=== PATIENT | male | born 1985 | race Caucasian/White ===

== ENCOUNTER 2017-07-07 19:40 | Emergency (ER) | payer BC, OTHER ==
[2017-07-07 19:53] VITALS: BP 119/70
[2017-07-07] MEDS ORDERED: Tetan/Diph/Pertus SYR(Tdap)* 0.5 ML SYR(BOOSTRIX) use SYR IM ONE (20:37)
[2017-07-07] MEDS ORDERED: Lidocaine 2% PF * 5 ML VIAL INJ ONE (20:44)
--- NOTE | 2017-07-07 20:44 | UC ---
Laceration HPI - HPI Summary HPI Summary: 31 y/o male presents to the urgent care c/o cutting his s left middle finger with a knife while doing some cable work about 2 hrs ago. Pt irrigated wound and bleeding stopped. Pt can't recall last tetanus shot. Pain is 3/10 and he can move his finger w/o any difficulty or pain. Pt denies numbness or tingling over the finger, SOB, chest pain , N/V/D - History Of Current Complaint Chief Complaint: UCLaceration Stated Complaint: HAND LACERATION Time Seen by Provider: 07/07/17 20:36 Hx Obtained From: Patient Laceration Location: Finger - Left middle finger Mechanism Of Injury: Sharp Trauma Onset/Duration: Sudden Onset - 2 hrs ago, Lasting Hours, Lasting Days Severity: Moderate Pain Intensity: 3 Pain Scale Used: 0-10 Numeric Aggravating Factors: Movement Related History: Dominant Hand Right - Allergies/Home Medications Allergies/Adverse Reactions: Allergies Allergy/AdvReac Type Severity Reaction Status Date / Time No Known Allergies Allergy Verified 07/07/17 19:53 PMH/Surg Hx/FS Hx/Imm Hx Previously Healthy: Yes - Pt denies PMHX - Surgical History Surgical History: Yes Surgery Procedure, Year, and Place: T&A age 13 - Family History Known Family History: Positive: None - No heart disease or DM in the family - Social History Occupation: Employed Full-time Lives: With Family Alcohol Use: None Substance Use Type: None Smoking Status (MU): Never Smoked Tobacco Review of Systems Constitutional: Fever Skin: Other - Lef middle finger laceration Eyes: Negative ENT: Negative Respiratory: Negative Cardiovascular: Negative Gastrointestinal: Negative Genitourinary: Negative Motor: Negative Neurovascular: Negative Musculoskeletal: Negative Neurological: Negative Psychological: Negative Is Patient Immunocompromised?: No All Other Systems Reviewed And Are Negative: Yes Physical Exam Triage Information Reviewed: Yes Appearance: Well-Appearing, No Pain Distress, Well-Nourished Vital Signs: Initial Vital Signs Temp 99.0 F 07/07/17 19:51 Pulse 81 07/07/17 19:51 Resp 14 07/07/17 19:51 BP 119/70 07/07/17 19:51 Pulse Ox 96 07/07/17 19:51 Vital Signs Reviewed: Yes Eye Exam: Normal Eyes: Positive: Conjunctiva Clear - PERRLA, EOMI ENT Exam: Normal ENT: Positive: Normal ENT inspection, Hearing grossly normal, Pharynx normal, TMs normal Neck exam: Normal Neck: Positive: Supple, Nontender, No Lymphadenopathy Respiratory Exam: Normal Respiratory: Positive: Chest non-tender, Lungs clear, Normal breath sounds Cardiovascular Exam: Normal Cardiovascular: Positive: RRR, No Murmur, Pulses Normal, Brisk Capillary Refill Abdominal Exam: Normal Abdomen Description: Positive: Nontender, No Organomegaly, Soft. Negative: CVA Tenderness (R), CVA Tenderness (L) Bowel Sounds: Positive: Present Musculoskeletal Exam: Normal Musculoskeletal: Positive: Strength Intact, ROM Intact, No Edema Neurological Exam: Normal Psychological Exam: Normal Skin: Positive: significant lesion(s) - Left #3 phalanx superficial laceration near the DIPJ about 1.8cm in size, non bleeding, no foreign body observe. FROM of phalanx.positive sensation, brisk capillary refill, positive pulses and reflexes WNL Laceration Repair - Laceration Repair 1 Description: Linear Laceration Size After Repair: Length (cm) - 1.8cm Modified For Repair: No Type Injection: Local Anesthesia Used: 2.0% Lido - 4ml Cleansing Completed Via Routine Prep: Yes Irrigation With Pressure Irrigation Device: Yes Closure Material: Sutures - 6 Closure Method: Single Layer Suture Of: Skin Suture Type: Nylon - 5.0 Laceration Course/Dx - Course/Dx Course Of Treatment: 31 y/o male presents to the urgent care c/o cutting his s left middle finger with a knife while doing some cable work about 2 hrs ago. Pt irrigated wound and bleeding stopped. Pt can't recall last tetanus shot. Pain is 3/10 and he can move his finger w/o any difficulty or pain. Pt denies numbness or tingling over the finger, SOB, chest pain , N/V/D. HX obtaeined. PE performed,Tetanus vaccine orderedn. Applied by nurse. Pt tolerated well IM vaccine. LACERATION PROCEDURE NOTE: . Copious irrigation was done with saline by the nurse and the wound explored. There was no FB or deep structure injury noted. FROM of left #3 phlanx and left hand. procedure was explained and consent obtained, Timeout performed. The wound was anesthetized with 4 mL of 2 % lido with good anesthesia. Sterile drape and prep was done. There were 6 sutures with 5.0 nylon type of suture. The length of the wound after closure was 1.8m. No debridement done. Wound was covered bacitracin with sterile nonadherent dressing. The Pt tolerated the procedure well without adverse effects. Neurovascular intact and FROM. Pt advised to f/u suture removal in 10 days and if any signs of infection develop to immediately return to the urgent care of PCP for further management and treatment. Pt understood and agreed and left the clinic ambulating A&Ox3. - Differential Dx - Laceration/Wound Differental Diagnoses: Abrasion, Avulsion, Fracture, Laceration, Puncture Wound , Tendon Laceration Provider Diagnoses: 1- Left #3 phalanx laceration Discharge - Discharge Plan Condition: Stable Disposition: HOME Prescriptions: Bacitracin OINTMENT* 1 applic TOPICAL TID #1 tube Ibuprofen TAB* [Motrin TAB* 800 MG] 800 mg PO Q6H #20 tab Patient Education Materials: Care For Your Stitches (ED), Laceration (ED) Referrals: [facility] [Outside] - 1 Week No Primary Care Phys,NOPCP [Primary Care Provider] - Additional Instructions: 1- Keep wound clean and dry and avoid excessive movement w/ your finger. 2- F/u suture removal in 10 days w/ your PCP or here at the urgent care. 3-Take Ibuprofen PO q6-8hrs prn for pain or swelling. 4- If you develop fever or redness around your finger please go to the ER immediately or return to the Urgent care.
== END 2017-07-07 22:11 | disposition home or self-care (01) ==
LOC: UCEAST 19:40
DX: S61.213A Laceration without foreign body of left middle finger without damage to nail, initial encounter (principal); W26.0XXA Contact with knife, initial encounter; Y93.89 Activity, other specified; Y92.9 Unspecified place or not applicable; Y99.9 Unspecified external cause status
CPT/HCPCS: 12001; 90471; 90715; 99212; G0463

== ENCOUNTER 2019-04-28 09:26 | Emergency (ER) | payer SELFPAY ==
[2019-04-28] MEDS ORDERED: NS 0.9% 1000 ML** 1,000 ML IV ONE (10:03)
[2019-04-28] MEDS ORDERED: Ondansetron INJ* 2 MG/ML VIAL IV ONE (10:03)
[2019-04-28] MEDS ORDERED: Ketorolac INJ* 30 MG/ML 1 ML VIAL IV PUSH ONE (10:03)
[2019-04-28 10:27] LABS: ABS Lymphocytes 0.3 10^3/ul (1.0-4.8); ABS Monocytes 0.3 10^3/ul (0-0.8); ABS Neutrophils 1.8 10^3/ul (1.5-7.7); Eosinophil % 0.2 %; Hematocrit 42 % (42-52); Hemoglobin 14.4 g/dL (14.0-18.0); Lymphocyte % 12.3 %; Mean Corpuscular HGB Conc 35 g/dL (31-36); Mean Corpuscular Hemoglobin 30 pg (27-31); Mean Corpuscular Volume 86 fL (80-94); Mean Platelet Volume 7.2 fL (7.4-10.4); Platelet Count 126 10^3/uL (150-450); Red Blood Count 4.84 10^6 /uL (4.18-5.48); Red Cell Distribution Width 13 % (10-15); White Blood Count 2.4 10^3/uL (3.5-10.8)
[2019-04-28 10:44] LABS: Albumin 4.5 g/dL (3.2-5.2); Albumin/Globulin Ratio 1.7 (1-3); BUN/Creatinine Ratio 15.8 (8-20); C Reactive Protein 76.75 mg/L (<8.01); Calcium 9.4 mg/dL (8.6-10.3); EGFR African American 142.1 (>60); EGFR Non-African American 117.4 (>60); Globulin 2.7 g/dL (2-4); Potassium 3.7 mmol/L (3.5-5.0); Total Bilirubin 1.4 mg/dL (0.2-1.0); Total Protein 7.2 g/dL (6.4-8.9)
[2019-04-28] MEDS ORDERED: DOXYcycline CAP(*) 100 MG PO ONE (11:12)
[2019-04-28 11:32] VITALS: BP 133/76
--- NOTE | 2019-04-28 11:48 | ED ---
Complex/Multi-Sys Presentation - HPI Summary HPI Summary: Patient is a 33-year-old male who presents emergency department for fever, headache, neck pain and diffuse body aches times several days. Patient denies cough, sore throat, sinus congestion, abdominal pain, vomiting, diarrhea, dysuria. 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 Patient states he noticed a area of redness to his buttocks a few days ago and significant other states redness is growing larger. Patient states it did appear to be central clearing to the area. He states he has had boils in the past but states this is not painful there has been no drainage. Patient has a history of drug addiction and has been clean for a few years. Patient denies recent IV drug use. Denies recent travels or new exposures. Symptoms are moderate in severity. No current modifying factors. - History Of Current Complaint Chief Complaint: EDNeckComplaint Time Seen by Provider: 04/28/19 09:42 Hx Obtained From: Patient - Allergies/Home Medications Allergies/Adverse Reactions: Allergies Allergy/AdvReac Type Severity Reaction Status Date / Time No Known Allergies Allergy Verified 04/28/19 09:41 Home Medications: Home Medications Buprenorphine TAB* 24 mg PO DAILY 04/28/19 [History Confirmed 04/28/19] PMH/Surg Hx/FS Hx/Imm Hx Previously Healthy: Yes Endocrine/Hematology History: Denies: Hx Diabetes Cardiovascular History: Denies: Hx Hypertension History: Denies: Hx Dialysis, Hx Renal Disease - Surgical History Surgery Procedure, Year, and Place: T&A age 13 Infectious Disease History: No Infectious Disease History: Denies: Traveled Outside the [place] in Last 30 Days - Family History Known Family History: Positive: None - No heart disease or DM in the family, Non -Contributory - Social History Occupation: Employed Full-time Lives: With Family Alcohol Use: None Substance Use Type: Reports: None Smoking Status (MU): Never Smoked Tobacco Review of Systems Positive: Fever, Chills Eyes: Negative ENT: Negative Negative: Dental Pain, Sore Throat, Ear Ache, Nasal Discharge Cardiovascular: Negative Negative: Palpitations, Chest Pain Respiratory: Negative Negative: Shortness Of Breath, Cough Positive: Nausea. Negative: Abdominal Pain, Vomiting, Diarrhea Genitourinary: Negative Negative: dysuria Positive: Myalgia Positive: Rash Positive: Headache. Negative: Weakness, Paresthesia, Numbness, Syncope All Other Systems Reviewed And Are Negative: Yes Physical Exam Triage Information Reviewed: Yes Vital Signs On Initial Exam: Initial Vitals Temp Pulse Resp BP Pulse Ox 98.4 F 71 14 128/78 99 04/28/19 09:27 04/28/19 09:27 04/28/19 09:27 04/28/19 09:27 04/28/19 09:27 Vital Signs Reviewed: Yes Appearance: Positive: Well-Appearing - Pt. sitting up in bed in NAD. SO present. Skin: Positive: Warm, Dry, Other - Annular erythematous rash noted to top of right gluteal cleft. Mild central clearing. No tenderness, induration or fluctuance. Head/Face: Positive: Normal Head/Face Inspection Eyes: Positive: Normal, EOMI, ELIZABETH, Conjunctiva Clear ENT: Positive: Pharynx normal, TMs normal Neck: Positive: Supple, Nontender, No Lymphadenopathy. Negative: Nuchal Rigidity Respiratory/Lung Sounds: Positive: Clear to Auscultation, Breath Sounds Present. Negative: Rales, Rhonchi, Wheezes Cardiovascular: Positive: Normal, RRR Musculoskeletal: Positive: Normal, Strength/ROM Intact Neurological: Positive: Normal, CN Intact II-III Psychiatric: Positive: Affect/Mood Appropriate Diagnostics - Vital Signs Vital Signs Temp Pulse Resp BP Pulse Ox 04/28/19 11:31 98.4 F 73 16 133/76 99 04/28/19 09:27 98.4 F 71 14 128/78 99 - Laboratory Lab Results: Lab Results 04/28/19 04/28/19 Range/Units 10:18 10:18 WBC 2.4 L (3.5-10.8) 10^3/uL RBC 4.84 (4.18-5.48) 10^6 /uL Hgb 14.4 (14.0-18.0) g/dL Hct 42 (42-52) % MCV 86 (80-94) fL MCH 30 (27-31) pg MCHC 35 (31-36) g/dL RDW 13 (10-15) % Plt Count 126 L (150-450) 10^3/uL MPV 7.2 L (7.4-10.4) fL Neut % (Auto) 73.9 % Lymph % (Auto) 12.3 % Boyle % (Auto) 13.4 % Eos % (Auto) 0.2 % Baso % (Auto) 0.2 % Absolute Neuts (auto) 1.8 (1.5-7.7) 10^3/ul Absolute Lymphs (auto) 0.3 L (1.0-4.8) 10^3/ul Absolute Monos (auto) 0.3 (0-0.8) 10^3/ul Absolute Eos (auto) 0.0 (0-0.6) 10^3/ul Absolute Basos (auto) 0.0 (0-0.2) 10^3/ul Absolute Nucleated RBC 0.0 10^3/ul Nucleated RBC % 0.0 Sodium 137 (135-145) mmol/L Potassium 3.7 (3.5-5.0) mmol/L Chloride 101 (101-111) mmol/L Carbon Dioxide 31 (22-32) mmol/L Anion Gap 5 (2-11) mmol/L BUN 12 (6-24) mg/dL Creatinine 0.76 (0.67-1.17) mg/dL Est GFR ( Amer) 142.1 (>60) Est GFR (Non-Af Amer) 117.4 (>60) BUN/Creatinine Ratio 15.8 (8-20) Glucose 127 H (70-100) mg/dL Calcium 9.4 (8.6-10.3) mg/dL Total Bilirubin 1.40 H (0.2-1.0) mg/dL AST 88 H (13-39) U/L ALT 74 H (7-52) U/L Alkaline Phosphatase 85 (34-104) U/L C-Reactive Protein 76.75 H (<8.01) mg/L Total Protein 7.2 (6.4-8.9) g/dL Albumin 4.5 (3.2-5.2) g/dL Globulin 2.7 (2-4) g/dL Albumin/Globulin Ratio 1.7 (1-3) Result Diagrams: 04/28/19 10:18 04/28/19 10:18 Lab Statement: Any lab studies that have been ordered have been reviewed, and results considered in the medical decision making process. Complex Multi-Symp Course/Dx Course Of Treatment: Patient presenting with headache, fever, malaise and rash. No nuchal rigidity or evidence of meningitis on exam. Given symptoms and rash suspect tick borne illness. Patient was given IV fluids and Toradol. Labs chest x-ray ordered. Chest x-ray is negative for acute findings, reading per radiology. Labs shows a leukopenia, low platelets as well as mildly elevated liver enzymes. Suspect sxs maybe from anaplasmosis given labs. Anaplasmosis added on tests. On reexamination patient is feeling a bit better. We'll start on doxycycline. Results were discussed. Advised close follow-up with PCP next week. Will call if labs are positive. Can rotate Tylenol and Motrin for fever and pain control. We'll return to the ER if symptoms change or worsen. Patient and significant other understand and agree with plan. - Diagnoses Provider Diagnoses: Fever, At high risk for tick borne illness Discharge - Sign-Out/Discharge Documenting (check all that apply): Patient Departure Patient Received Moderate/Deep Sedation with Procedure: No - Discharge Plan Condition: Improved Disposition: HOME Prescriptions: DOXYcycline CAP(*) [DOXYcycline 100MG CAP(*)] 100 mg PO BID #42 cap Patient Education Materials: Lyme Disease (ED), Fever in Adults (ED) Referrals: Gerri Turner MD [Primary Care Provider] - Additional Instructions: Call PCP tomorrow for close follow up appointment Take doxycycline as directed Symptoms and labs are concerning for anaplasmosis (tick born disease) Will call if send out test are positive Can rotate between Tylenol and Motrin for pain and fever as directed Increase fluids and rest Return to ER if symptoms change or worsen - Billing Disposition and Condition Condition: IMPROVED Disposition: Home
[2019-05-02 10:18] LABS: Anaplasma phagocytophilum Negative (Negative); B garinii/B afzelii PCR Negative (Negative); B mayonii PCR Negative (Negative); Ehrlichia chaffeensis Negative (Negative); Ehrlichia ewingii/canis Negative (Negative); Ehrlichia muris eauclairensis Negative (Negative)
== END 2019-04-28 11:31 | disposition home or self-care (01) ==
LOC: ED 09:26
DX: R50.9 Fever, unspecified (principal); R51 Headache; M54.2 Cervicalgia; M79.10 Myalgia, unspecified site
CPT/HCPCS: 36415; 71046; 80053; 85025; 86140; 87040; 87476; 87798; 96361; 96374; 96375; 99282; A9270-GY; J1885; J2405

== ENCOUNTER 2019-06-06 12:11 | Emergency (ER) | payer MEDICAID ==
[2019-06-06 12:22] VITALS: BP 97/59
--- NOTE | 2019-06-06 12:28 | UC ---
Throat Pain/Nasal Abdirahman HPI - HPI Summary HPI Summary: 33 yo male presents with LEFT TMJ pain. He tells me that about a week ago he was eating and bit down really hard and felt a pop in his left jaw near his ear. Since that time, anytime he bites down hard he has pain in this area. Has a hx of a jaw fracture here many years ago, but states it healed well. He has been taking ibuprofen with mild relief, but pain continues. Denies injury, fever , sinus symptoms, sore throat. - History of Current Complaint Chief Complaint: UCDentalProblem Stated Complaint: JAW/DENTAL PAIN Time Seen by Provider: 06/06/19 12:28 Hx Obtained From: Patient Onset/Duration: Sudden Onset Severity: Moderate Pain Intensity: 6 Pain Scale Used: 0-10 Numeric - Allergies/Home Medications Allergies/Adverse Reactions: Allergies Allergy/AdvReac Type Severity Reaction Status Date / Time No Known Allergies Allergy Verified 06/06/19 12:23 PMH/Surg Hx/FS Hx/Imm Hx - Additional Past Medical History Additional PMH: None - Surgical History Surgical History: Yes Surgery Procedure, Year, and Place: T&A age 13 - Family History Known Family History: Positive: None - No heart disease or DM in the family, Non -Contributory - Social History Lives: With Family Alcohol Use: None Substance Use Type: None Smoking Status (MU): Never Smoked Tobacco Review of Systems All Other Systems Reviewed And Are Negative: Yes Constitutional: Positive: Negative Skin: Positive: Negative Eyes: Positive: Negative ENT: Positive: Negative Respiratory: Positive: Negative Cardiovascular: Positive: Negative Neurovascular: Positive: Negative Musculoskeletal: Positive: Other: - LEFT TMJ pain Neurological: Positive: Negative Psychological: Positive: Negative Physical Exam - Summary Physical Exam Summary: GENERAL: NAD. WDWN. No pain distress. SKIN: No rashes, sores, lesions, or open wounds. HEENT: Head: AT/NC. LEFT TMJ mild TTP during closed position. Eyes: EOM intact. Conjunctiva clear without inflammation or discharge. Ears: Hearing grossly normal. TMs intact, no bulging, erythema, or edema. Nose: Nasal mucosa pink and moist. NTTP maxillary and frontal sinus. Throat: Posterior oropharynx without exudates, erythema. Uvula midline. NECK: Supple. Nontender. No lymphadenopathy. CHEST: CTAB. No r/r/w. No accessory muscle use. Breathing comfortably and in no distress. CV: RRR. Without m/r/g. Pulses intact. Cap refill <2seconds NEURO: Alert. PSYCH: Age appropriate behavior. Triage Information Reviewed: Yes Vital Signs: Initial Vital Signs Temp 98.4 F 06/06/19 12:19 Pulse 59 06/06/19 12:19 Resp 18 06/06/19 12:19 BP 97/59 06/06/19 12:19 Pulse Ox 98 06/06/19 12:19 Vital Signs Reviewed: Yes Throat Pain/Nasal Course/Dx - Course Course Of Treatment: XR TMJ: IMPRESSION: UNREMARKABLE TEMPOROMANDIBULAR JOINTS BILATERALLY. IF THERE IS CLINICAL CONCERN FOR INTERNAL DERANGEMENT, MRI MAY BE MORE SENSITIVE. Suspect left TMJ pain. Will have him try naproxen. Advised to avoid large or hard to eat foods such as steak or apples. Recommend f/u with ENT if pain persists - Differential Dx/Diagnosis Provider Diagnosis: TMJ tenderness, left Discharge - Sign-Out/Discharge Documenting (check all that apply): Patient Departure All imaging exams completed and their final reports reviewed: Yes - Discharge Plan Condition: Stable Disposition: HOME Prescriptions: Naproxen [Naproxen 500 mg tab] 500 mg PO BID PRN #30 tablet PRN Reason: Pain - Moderate Patient Education Materials: Temporomandibular Disorder (ED) Referrals: Gerri Turner MD [Primary Care Provider] - Sanjiv Mathur MD [Medical Doctor] - 1 Week Additional Instructions: If you develop a fever, shortness of breath, chest pain, new or worsening symptoms - please call your PCP or go to the ED immediately. I recommend that you call the Ear, Nose, and Throat doctor at the number below to schedule an appointment within 1 week for a recheck of your TMJ pain - Billing Disposition and Condition Condition: STABLE Disposition: Home
== END 2019-06-06 13:12 | disposition home or self-care (01) ==
LOC: UCEAST 12:11
DX: M26.622 Arthralgia of left temporomandibular joint (principal)
CPT/HCPCS: 70330; 99212; G0463

== ENCOUNTER 2019-12-25 11:17 | Emergency (ER) | payer MEDICAID, OTHER ==
[2019-12-25 11:36] VITALS: BP 119/82
[2019-12-25 12:43] LABS: Influenza A Molecular Negative (Negative); Influenza B Molecular Negative (Negative)
--- NOTE | 2019-12-25 12:56 | UC ---
FLU HPI - HPI Summary HPI Summary: 34yo male presenting with sore throat and nasal congestion x4 days and chest congestion, cough, and "chest pain" x2 days. Patient states chest pain is caused by deep breaths and coughing. Also notes feeling "wheezy" and "somewhat" short of breath. Notes feeling feverish and having chills and body aches. Denies n/v. Notes decreased appetite but "staying hydrated." Denies h/o asthma. Nonsmoker. Patient also adds that his left wrist has been hurting and he "self diagnosed" himself with de quervain's. Patient denies injury or trauma to the wrist. 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 - History of Current Complaint Chief Complaint: UCGeneralIllness Stated Complaint: CHEST CONGESTION FEVER SORE THROAT WRIST PAIN Hx Obtained From: Patient Pain Intensity: 4 Pain Scale Used: 0-10 Numeric - Allergy/Home Medications Allergies/Adverse Reactions: Allergies Allergy/AdvReac Type Severity Reaction Status Date / Time No Known Allergies Allergy Verified 12/25/19 11:36 Home Medications: Home Medications Naproxen [Naproxen 500 mg tab] 500 mg PO BID PRN #30 tablet 06/06/19 [Rx Confirmed 12/25/19] Albuterol HFA INHALER* [Ventolin HFA Inhaler*] 1 - 2 puff INH Q6H PRN #1 mdi 11/14 [Rx] Buprenorp/Nalox 8-2 MG FILM [Suboxone 8 mg-2 mg Sl Film] 24 mg PO DAILY WITH MEAL 12/25/19 [History Confirmed 12/25/19] PMH/Surg Hx/FS Hx/Imm Hx - Surgical History Surgical History: Yes Surgery Procedure, Year, and Place: T&A age 13 - Family History Known Family History: Positive: None - No heart disease or DM in the family, Non -Contributory - Social History Alcohol Use: None Substance Use Type: None Smoking Status (MU): Former Smoker Review of Systems All Other Systems Reviewed And Are Negative: Yes Constitutional: Positive: Fever, Chills ENT: Positive: Sore Throat, Sinus Congestion Respiratory: Positive: Cough. Negative: Shortness Of Breath Cardiovascular: Positive: Negative Gastrointestinal: Positive: Negative. Negative: Vomiting, Nausea Musculoskeletal: Positive: Arthralgia - left wrist pain, Myalgia Neurological/Mental Status: Positive: Negative Physical Exam - Summary Physical Exam Summary: Vital Signs Reviewed: Yes A+Ox3, no distress Eyes: Conjunctiva Clear ENT: Hearing grossly normal, TM x 2 clear, moist, uvula midline, no exudate, no erythema Neck: Positive: Supple Respiratory: Positive: No respiratory distress, No accessory muscle use, + diffuse expiratory wheezing throughout b/l lower lung saba Cardiovascular: RRR nl s1, s2 no m/r Musculoskeletal Exam: BENJAMIN x 4 without difficulty, +mild TTP of radial aspect of left wrist, +dakota test, no edema, no erythema or ecchymosis, ROM and strength intact Neurological: Positive: Alert Psychological: Positive: age appropriate behavior Skin: Positive: no rash, no ecchymosis Vital Signs: Initial Vital Signs Temp 100.2 F 12/25/19 11:31 Pulse 89 12/25/19 11:31 Resp 18 12/25/19 11:31 BP 119/82 12/25/19 11:31 Pulse Ox 100 12/25/19 11:31 Lab Results 12/25/19 Range/Units 12:32 Influenza A (Rapid) Negative (Negative) Influenza B (Rapid) Negative (Negative) Diagnostics - Radiology CXR Radiology Interpretation Completed By: Radiologist Summary of Radiographic Findings: IMPRESSION: No radiographic evidence of acute cardiopulmonary disease. Flu Course/Dx - Course Course Of Treatment: Negative rapid flu. CXR normal. Discussed results with patient and educated on likely viral etiology of symptoms. I provided patient with inhaler for sob/ wheezing and instructed to continue with symptomatic treatment. Educated on s/s of worsening respiratory illness and instructed to go to ED if any red flags occur. Patient voiced understanding and agreed with treatment plan. Also educated on de quervain tenosynovitis and instructed to use RICE and follow up with ortho if pain persists. - Differential Dx/Diagnosis Differential Diagnosis/HQI/PQRI: Bronchitis, Influenza, Upper Respiratory Infection Provider Diagnosis: Flu-like symptoms, De Quervain's disease (radial styloid tenosynovitis) Discharge ED - Sign-Out/Discharge Documenting (check all that apply): Patient Departure All imaging exams completed and their final reports reviewed: No Studies - Discharge Plan Condition: Stable Disposition: HOME Prescriptions: Albuterol HFA INHALER* [Ventolin HFA Inhaler*] 1 - 2 puff INH Q6H PRN #1 mdi PRN Reason: Sob/Wheezing Patient Education Materials: De Quervain Disease (ED), Viral Syndrome (ED), Wheezing (ED) Referrals: Gerri Turner MD [Primary Care Provider] - Arlene Beaver MD [Medical Doctor] - Additional Instructions: As discussed, your flu test was negative today and your chest xray was normal. Your symptoms are likely caused by a virus and should resolve without treatment. Use the inhaler as needed for shortness of breath and wheezing. You may also continue with over the counter cold and flu medication as directed for symptom relief. Follow up with your primary care provider if symptoms have not improved within 7 -10 days. Go to the emergency with any new or worsening symptoms. Continue to rest, ice, and elevate your wrist to help relieve pain. Your brace and ibuprofen will also help. Follow up with the orthopedics referral listed below if your wrist pain does not improve within 1-2 weeks. - Billing Disposition and Condition Condition: STABLE Disposition: Home
[2019-12-25] MEDS ORDERED: Acetaminophen TAB* 325 MG PO ONE (13:53)
== END 2019-12-25 14:30 | disposition home or self-care (01) ==
LOC: UCEAST 11:17
DX: M65.4 Radial styloid tenosynovitis [de Quervain] (principal); R50.9 Fever, unspecified; R05 Cough; J02.9 Acute pharyngitis, unspecified; R09.89 Other specified symptoms and signs involving the circulatory and respiratory systems; Z87.891 Personal history of nicotine dependence
CPT/HCPCS: 71046; 99211; G0463